=== PATIENT | female | born 1995 | race Native Hawaiian/Other Pacific Islander ===

== ENCOUNTER 2018-08-28 11:40 | Outpatient (CLI) | payer BC | END 2018-08-28 22:48 | disposition home or self-care (01) | LOC: CT 11:40 | DX: D37.030 Neoplasm of uncertain behavior of the parotid salivary glands (principal) | CPT/HCPCS: Q9963 ==

== ENCOUNTER 2021-02-03 19:26 | Emergency (ER) | payer BC ==
[~2021-02-03] VITALS: Ht 162.6 cm; Wt 66.2 kg
[2021-02-03 20:45] VITALS: BP 110/76; TEMP 97.4
== END 2021-02-03 20:45 | disposition home or self-care (01) ==
LOC: ED 19:26
DX: F41.8 Other specified anxiety disorders (principal)
CPT/HCPCS: 93005; 99283

== ENCOUNTER 2021-06-10 09:54 | Outpatient (CLI) | payer BC | END 2021-06-10 20:45 | disposition home or self-care (01) | LOC: CT 09:54 | PROVIDERS: ATTEND Physician Assistant | DX: R42 Dizziness and giddiness (principal) ==

== ENCOUNTER 2021-07-07 09:03 | Outpatient (CLI) | payer BC | END 2021-07-07 19:11 | disposition home or self-care (01) | LOC: MRI 09:03 | PROVIDERS: ATTEND Psychiatry & Neurology Neurology | DX: G93.5 Compression of brain (principal); R29.898 Other symptoms and signs involving the musculoskeletal system; M54.2 Cervicalgia ==

== ENCOUNTER 2021-11-30 09:04 | Outpatient (CLI) | payer BC | END 2021-11-30 18:52 | disposition home or self-care (01) | LOC: US 09:04 | PROVIDERS: ATTEND Physician Assistant | DX: R10.13 Epigastric pain (principal) ==

== ENCOUNTER 2022-11-11 07:59 | Outpatient (CLI) | payer OTHER | END 2022-11-11 19:08 | disposition home or self-care (01) | LOC: US 07:59 | PROVIDERS: ATTEND Specialist | DX: N64.4 Mastodynia (principal) | CPT/HCPCS: G0279 ==